=== PATIENT | female | born 1945 | race Two or more races ===

== ENCOUNTER 2017-11-05 12:59 | Inpatient (IN) | payer MEDICARE, MEDICAID ==
[~2017-11-05] VITALS: Ht 160 cm; Wt 65.3 kg
[2017-11-05] MEDS ORDERED: VANCOMYCIN 1 GM in IV D5W 250 ML IV ONE (13:30)
[2017-11-05 13:53] LABS: HEMATOCRIT 36 % (33-45); HEMOGLOBIN 11.8 g/dL (11.5-14.8); MEAN CORPUSCULAR VOLUME 88 fL (82-100); RED BLOOD CELL COUNT(AUTO) 4.08 MIL/uL (4.0-5.2)
[2017-11-05 13:54] LABS: BASOPHILS % (AUTO) 0.8 % (0.0-2.0); EOSINOPHILS % (AUTO) 0.6 % (0.0-6.0); LYMPHOCYTES % (AUTO) 32.8 % (20.0-44.0); MEAN CORPUSCULAR HEMOGLOBIN 29 PG (26.0-33.0); MEAN CORPUSCULAR HGB CONC 33 g/dl (31.0-36.0); MONOCYTES % (AUTO) 11.7 % (2.0-12.0); NEUTROPHILS % (AUTO) 54.1 % (43.0-81.0); PLATELET COUNT (AUTO) 431 /CMM (150-450); RDW COEFFICIENT OF VARIATION 14 (11.5-15.0)
[2017-11-05] MEDS ORDERED: PIPERACILLIN /TAZOBACTAM 3.375 G in IV D5W 50 ML IV ONE (14:00)
[2017-11-05 14:01] LABS: INR 0.96 (0.87-1.13)
[2017-11-05 14:03] LABS: ALBUMIN 3.3 g/dL (3.4-5.0); ALKALINE PHOSPHATASE 191 U/L (46-116); ASPARTATE AMINOTRANSFERASE 35 U/L (15-37); BILIRUBIN,DIRECT 0.1 mg/dL (0.0-0.2); BILIRUBIN,TOTAL 0.4 mg/dL (0.2-1.0); CALCIUM, SERUM 9.4 mg/dL (8.5-10.1); CARBON DIOXIDE 27 mmol/L (21-32); CHLORIDE 99 mmol/L (98-107); CREATININE 0.7 mg/dL (0.6-1.3); GLUCOSE 96 mg/dL (74-106); POTASSIUM 3.6 mmol/L (3.5-5.1); SODIUM SERUM 136 mmol/L (136-145); TOTAL PROTEIN, SERUM 8.5 g/dL (6.4-8.2); UREA NITROGEN, BLOOD 15 mg/dL (7-18)
[2017-11-05 14:11] LABS: TROPONIN I < 0.017 ng/mL (0.00-0.056)
[2017-11-05 14:38] LABS: APPEARANCE,URINE Clear (CLEAR); BILIRUBIN,URINE Negative (NEGATIVE); BLOOD, URINE Trace-intact Ery/uL (NEGATIVE); KETONES,URINE Negative (NEGATIVE); LEUKOCYTE ESTERASE ,URINE Negative (NEGATIVE); NITRITE, URINE Negative (NEGATIVE); PH,URINE 5.5 (5.0-8.0); PROTEIN,URINE Negative (NEGATIVE); UGLUCOSE Negative (NEGATIVE)
[2017-11-05 14:39] LABS: COLOR,URINE DARK YELLOW (YELLOW)
[2017-11-05 14:47] LABS: BACTERIA,URINE Few /HPF (None Seen); MUCUS,URINE Few /LPF (None Seen); SQUAMOUS EPITHELIAL CELL,UR Moderate /HPF (None Seen)
[2017-11-05 14:48] LABS: ALANINE AMINOTRANSFERASE 31 U/L (12-78)
[2017-11-05] MEDS ORDERED: LEVO175T7 PO (15:30)
[2017-11-05] MEDS ORDERED: LOSA50TA21 PO (15:30)
[2017-11-05] MEDS ORDERED: LEVO50TA8 PO (15:30)
[2017-11-05 16:30] VITALS: BP 134/69
[2017-11-05] MEDS ORDERED: FEE PK DOSING 1 MIN EA MC ONE (17:16)
[2017-11-05] MEDS ORDERED: MAGNESIUM HYDROXIDE 30 ML UDC PO PRN (17:30)
[2017-11-05] MEDS ORDERED: MAG HYDROX/AL HYDROX/SIMETH 30 ML UDC PO PRN (17:30)
[2017-11-05] MEDS ORDERED: HYDROCODONE/APAP 10/325MG 1 EA TABLET PO PRN (17:30)
[2017-11-05] MEDS ORDERED: TEMAZEPAM 15 MG CAPSULE PO PRN (17:30)
[2017-11-05] MEDS ORDERED: HYDROCODONE/APAP 5/325MG 1 EACH TABLET PO PRN (17:30)
[2017-11-05] MEDS ORDERED: ONDANSETRON HCL/PF 4 MG/2 ML VIAL IVP PRN (17:30)
[2017-11-05] MEDS ORDERED: CEFTRIAXONE 1 G in IV D5W 50 ML IV SCH (18:00)
[2017-11-05 19:20] VITALS: BP 134/69
[2017-11-05 20:00] VITALS: BP 133/54
[2017-11-06] MEDS: VANCOMYCIN 0.75 GM in IV NS 0.9% 250 ML IV SCH ×2 (02:01→13:07)
[2017-11-06 04:00] VITALS: BP 136/58
[2017-11-06] MEDS: ACETAMINOPHEN 325 MG TABLET PO PRN ×2 (04:33→13:06)
[2017-11-06 06:28] LABS: CALCIUM, SERUM 8.7 mg/dL (8.5-10.1); CARBON DIOXIDE 26 mmol/L (21-32); CHLORIDE 100 mmol/L (98-107); CREATININE 0.6 mg/dL (0.6-1.3); GLUCOSE 105 mg/dL (74-106); MAGNESIUM 1.9 mg/dL (1.8-2.4); PHOSPHORUS 3.4 mg/dL (2.5-4.9); SODIUM SERUM 135 mmol/L (136-145); UREA NITROGEN, BLOOD 8 mg/dL (7-18)
[2017-11-06 06:29] LABS: CHOLESTEROL 134 mg/dL (<200); HDL CHOLESTEROL 40 mg/dL (40-60); LDL 91 mg/dL (0-99); TRIGLYCERIDES 50 mg/dL (30-150)
[2017-11-06 06:54] LABS: BASOPHILS # (AUTO) 0.1 /CMM (0.0-0.2); BASOPHILS % (AUTO) 1.1 % (0.0-2.0); EOSINOPHILS % (AUTO) 0.7 % (0.0-6.0); HEMATOCRIT 33 % (33-45); LYMPHOCYTES # (AUTO) 2.2 /CMM (0.8-4.8); LYMPHOCYTES % (AUTO) 24.4 % (20.0-44.0); MEAN CORPUSCULAR HEMOGLOBIN 29 PG (26.0-33.0); MEAN CORPUSCULAR HGB CONC 33 g/dl (31.0-36.0); MEAN CORPUSCULAR VOLUME 88 fL (82-100); MONOCYTES % (AUTO) 11.6 % (2.0-12.0); NEUTROPHILS # (AUTO) 5.7 /CMM (1.8-8.9); NEUTROPHILS % (AUTO) 62.2 % (43.0-81.0); PLATELET COUNT (AUTO) 391 /CMM (150-450); RDW COEFFICIENT OF VARIATION 13.3 (11.5-15.0); RED BLOOD CELL COUNT(AUTO) 3.76 MIL/uL (4.0-5.2); WHITE BLOOD COUNT (AUTO) 9.1 K/uL (4.3-11.0)
[2017-11-06 08:00] VITALS: BP 118/57
[2017-11-06] MEDS: PANTOPRAZOLE 40 MG TABLET.DR PO SCH (08:29)
[2017-11-06 12:00] VITALS: BP 118/57
[2017-11-06 16:00] VITALS: BP 128/60
[2017-11-06] MEDS: PIPERACILLIN /TAZOBACTAM 3.375 G in IV D5W 50 ML IV SCH (19:32)
[2017-11-06 20:00] VITALS: BP 140/71
[2017-11-07] MEDS: PIPERACILLIN /TAZOBACTAM 3.375 G in IV D5W 50 ML IV SCH ×3 (00:12→11:33)
[2017-11-07] MEDS: VANCOMYCIN 0.75 GM in IV NS 0.9% 250 ML IV SCH (02:23)
[2017-11-07 04:00] VITALS: BP 126/64
[2017-11-07 05:53] VITALS: BP 125/64
[2017-11-07 06:22] LABS: BASOPHILS # (AUTO) 0.1 /CMM (0.0-0.2); BASOPHILS % (AUTO) 0.5 % (0.0-2.0); EOSINOPHILS % (AUTO) 0.5 % (0.0-6.0); HEMATOCRIT 35 % (33-45); HEMOGLOBIN 11.5 g/dL (11.5-14.8); LYMPHOCYTES # (AUTO) 2.3 /CMM (0.8-4.8); LYMPHOCYTES % (AUTO) 21.4 % (20.0-44.0); MEAN CORPUSCULAR HEMOGLOBIN 29 PG (26.0-33.0); MEAN CORPUSCULAR HGB CONC 33 g/dl (31.0-36.0); MEAN CORPUSCULAR VOLUME 88 fL (82-100); MONOCYTES # (AUTO) 0.8 /CMM (0.1-1.30); MONOCYTES % (AUTO) 7.2 % (2.0-12.0); NEUTROPHILS # (AUTO) 7.7 /CMM (1.8-8.9); NEUTROPHILS % (AUTO) 70.4 % (43.0-81.0); PLATELET COUNT (AUTO) 413 /CMM (150-450); RDW COEFFICIENT OF VARIATION 12.8 (11.5-15.0); RED BLOOD CELL COUNT(AUTO) 3.92 MIL/uL (4.0-5.2)
[2017-11-07] MEDS: PANTOPRAZOLE 40 MG TABLET.DR PO SCH (08:00)
[2017-11-07] MEDS ORDERED: IV NS 0.9% 1,000 ML BAG IV PRN (10:30)
[2017-11-07] MEDS ORDERED: IV NS 0.9% 500 ML IV ONE (10:30)
[2017-11-07] MEDS: IV NS 0.9% 1,000 ML IV PRN ×2 (11:11→21:53)
[2017-11-07 13:50] LABS: CALCIUM, SERUM 8.6 mg/dL (8.5-10.1); CARBON DIOXIDE 29 mmol/L (21-32); CHLORIDE 102 mmol/L (98-107); CREATININE 0.8 mg/dL (0.6-1.3); GLUCOSE 123 mg/dL (74-106); POTASSIUM 3.6 mmol/L (3.5-5.1); SODIUM SERUM 137 mmol/L (136-145); UREA NITROGEN, BLOOD 9 mg/dL (7-18)
[2017-11-07] MEDS ORDERED: IOHEXOL-350 100 ML VIAL IV ONE (14:10)
[2017-11-07] MEDS: VANCOMYCIN 1 GM in IV D5W 250 ML IV SCH (15:28)
[2017-11-07] MEDS: LACTOBACILLUS RHAMNOSUS GG 1 EACH CAP.SPRINK PO SCH (16:42)
[2017-11-07 17:43] VITALS: BP 127/62
[2017-11-07 20:00] VITALS: BP 130/61
[2017-11-08] MEDS: VANCOMYCIN 1 GM in IV D5W 250 ML IV SCH ×2 (02:55→14:34)
[2017-11-08 04:00] VITALS: BP 158/41
[2017-11-08 06:08] LABS: CALCIUM, SERUM 8.9 mg/dL (8.5-10.1); CREATININE 0.6 mg/dL (0.6-1.3); GLUCOSE 106 mg/dL (74-106); UREA NITROGEN, BLOOD 9 mg/dL (7-18)
[2017-11-08 06:16] LABS: CARBON DIOXIDE 31 mmol/L (21-32); CHLORIDE 105 mmol/L (98-107); POTASSIUM 3.6 mmol/L (3.5-5.1); SODIUM SERUM 140 mmol/L (136-145)
[2017-11-08] MEDS: PANTOPRAZOLE 40 MG TABLET.DR PO SCH (07:49)
[2017-11-08 08:00] VITALS: BP 131/63
[2017-11-08] MEDS: LACTOBACILLUS RHAMNOSUS GG 1 EACH CAP.SPRINK PO SCH ×2 (08:46→16:46)
[2017-11-08] MEDS: IV NS 0.9% 1,000 ML IV PRN (10:19)
[2017-11-08 12:00] VITALS: BP 132/64
[2017-11-08 13:29] LABS: CALCIUM, SERUM 9.2 mg/dL (8.5-10.1); CARBON DIOXIDE 29 mmol/L (21-32); CHLORIDE 103 mmol/L (98-107); CREATININE 0.5 mg/dL (0.6-1.3); GLUCOSE 116 mg/dL (74-106); POTASSIUM 3.7 mmol/L (3.5-5.1); SODIUM SERUM 138 mmol/L (136-145); UREA NITROGEN, BLOOD 7 mg/dL (7-18)
[2017-11-08] MEDS ORDERED: RXVAN XX (15:55)
== END 2017-11-08 18:56 | disposition home health service (06) | DRG 603 ==
LOC: ER 13:03 → MEDSG1 15:58
PROVIDERS: ADMIT Nurse Practitioner Acute Care; ATTEND Nurse Practitioner Acute Care
DX: L03.116 Cellulitis of left lower limb (principal); E44.1 Mild protein-calorie malnutrition; I82.812 Embolism and thrombosis of superficial veins of left lower extremity; Z85.850 Personal history of malignant neoplasm of thyroid; I10 Essential (primary) hypertension; E55.9 Vitamin D deficiency, unspecified; E03.9 Hypothyroidism, unspecified; G62.9 Polyneuropathy, unspecified; M19.90 Unspecified osteoarthritis, unspecified site; E88.09 Other disorders of plasma-protein metabolism, not elsewhere classified; R74.8 Abnormal levels of other serum enzymes; Z68.25 Body mass index [BMI] 25.0-25.9, adult; I80.8 Phlebitis and thrombophlebitis of other sites
CPT/HCPCS: 36415; 73701-TC; 80048-TC; 80061-TC; 80076-TC; 80202-TC; 81000-TC; 83605-TC; 83735-TC; 84100-TC; 84484-TC; 85025-TC; 85730-TC; 87040-TC; 87081-TC; 87086-TC; 93971-TC; A4606; J0696; J2543; J3370; J7030; J7040; J7050; J7060; Q9967; Z7610

== ENCOUNTER 2017-11-12 13:09 | Outpatient (CLI) | payer MEDICARE, MEDICAID ==
[~2017-11-12 13:09] MED LIST: LEVO175T7 PO; LEVO50TA8 PO; LOSA50TA21 PO; RXVAN XX
[2017-11-12 13:19] VITALS: BP 128/65
== END 2017-11-12 23:59 | disposition home or self-care (01) ==
LOC: MSC 13:09
PROVIDERS: ATTEND Internal Medicine
DX: L03.116 Cellulitis of left lower limb (principal); I10 Essential (primary) hypertension; E03.9 Hypothyroidism, unspecified; M19.90 Unspecified osteoarthritis, unspecified site; G62.9 Polyneuropathy, unspecified; E55.9 Vitamin D deficiency, unspecified; E44.1 Mild protein-calorie malnutrition; E88.09 Other disorders of plasma-protein metabolism, not elsewhere classified

== ENCOUNTER 2017-11-12 14:06 | Outpatient (CLI) | payer MEDICARE, MEDICAID | END 2017-11-12 23:59 | disposition home or self-care (01) | LOC: CL 14:06 → WOU 23:59 → CL 23:59 | PROVIDERS: ATTEND Nurse Practitioner Acute Care | DX: I80.9 Phlebitis and thrombophlebitis of unspecified site (principal) ==

== ENCOUNTER 2018-09-13 13:50 | Outpatient (CLI) | payer MEDICARE, MEDICAID ==
[~2018-09-13 13:50] MED LIST changes: -LOSA50TA21 PO; +LOSA50TA39 PO
[2018-09-13 14:35] LABS: BASOPHILS % (AUTO) 0.6 % (0.0-2.0); EOSINOPHILS % (AUTO) 0.9 % (0.0-6.0); HEMATOCRIT 37 % (33-45); HEMOGLOBIN 12.4 g/dL (11.5-14.8); LYMPHOCYTES % (AUTO) 40.9 % (20.0-44.0); MEAN CORPUSCULAR HGB CONC 33 g/dl (31.0-36.0); MEAN CORPUSCULAR VOLUME 88 fL (82-100); MONOCYTES # (AUTO) 0.8 /CMM (0.1-1.30); MONOCYTES % (AUTO) 10.7 % (2.0-12.0); NEUTROPHILS # (AUTO) 3.5 /CMM (1.8-8.9); NEUTROPHILS % (AUTO) 46.9 % (43.0-81.0); PLATELET COUNT (AUTO) 313 /CMM (150-450); RED BLOOD CELL COUNT(AUTO) 4.23 MIL/uL (4.0-5.2); WHITE BLOOD COUNT (AUTO) 7.4 K/uL (4.3-11.0)
== END 2018-09-13 23:59 | disposition home or self-care (01) ==
LOC: WOU 13:50
PROVIDERS: ATTEND Podiatrist Foot & Ankle Surgery
PROC: 0H9KXZZ Drainage of Right Lower Leg Skin, External Approach (ICD-10-PCS; principal; 2018-09-13)
DX: L03.115 Cellulitis of right lower limb (principal); L02.818 Cutaneous abscess of other sites; E89.0 Postprocedural hypothyroidism; I10 Essential (primary) hypertension; I87.8 Other specified disorders of veins; S80.11XA Contusion of right lower leg, initial encounter; X58.XXXA Exposure to other specified factors, initial encounter; Y92.89 Other specified places as the place of occurrence of the external cause
CPT/HCPCS: 36415; 85025-TC; 85652-TC; 86140-TC; 87070-TC; 87075-TC; J3490

== ENCOUNTER 2018-09-24 09:45 | Outpatient (CLI) | payer MEDICARE, MEDICAID | END 2018-09-24 23:59 | disposition home or self-care (01) | LOC: WOU 09:45 | PROVIDERS: ATTEND Podiatrist Foot & Ankle Surgery | DX: L03.115 Cellulitis of right lower limb (principal); R60.0 Localized edema; S80.11XD Contusion of right lower leg, subsequent encounter; X58.XXXD Exposure to other specified factors, subsequent encounter; L84 Corns and callosities; B35.1 Tinea unguium | CPT/HCPCS: G0463 ==